=== PATIENT | male | born 1965 | race Caucasian/White ===

== ENCOUNTER 2019-05-28 07:46 | Day surgery (SDC) | payer BC, OTHER ==
[~2019-05-28] VITALS: Ht 177.8 cm; Wt 103.0 kg
[2019-05-28 08:45] VITALS: BP 103/42
== END 2019-05-28 14:50 | disposition home or self-care (01) ==
LOC: OUT 07:46
PROVIDERS: ATTEND Surgery
DX: K80.10 Calculus of gallbladder with chronic cholecystitis without obstruction (principal); K66.0 Peritoneal adhesions (postprocedural) (postinfection); E66.3 Overweight
CPT/HCPCS: 36415; 47562; 80053; 88304; J0171; J1170; J2250; J2704; J2710; J3010; J3490; J7120